=== PATIENT | female | born 1985 | race Hispanic/Latino ===

== ENCOUNTER 2017-12-05 07:34 | Day surgery (SDC) | payer BC ==
[2017-11-30 09:58] VITALS: BMI 24.9
[2017-12-05] MEDS ORDERED: Lidocaine 1% Inj (20ml) ONE (08:59)
[2017-12-05] MEDS ORDERED: ceFAZolin 1 gm in NS 1 GM/100 ML BAG IVPB ONE (08:59)
[2017-12-05] MEDS ORDERED: Bupivacaine HCl 0.5% PF (10 ml) Inj ONE (09:00)
[2017-12-05] MEDS ORDERED: Bacitracin Ointment 30 GM TUBE ONE (09:02)
[2017-12-05] MEDS ORDERED: Lactated Ringer's 1,000 ML IV ONE (09:15)
[2017-12-05] MEDS ORDERED: Lidocaine 1%/Epinephrine 1:100000 30 ml vial IJ ONE (09:33)
--- NOTE | 2017-12-05 10:24 | PCM.SURG1 ---
Surgeon's Initial Post Op Note - Surgeon's Notes Surgeon: Dr. Brown Education Professor: PGY1, Milo OMS3 Type of Anesthesia: Local Pre-Operative Diagnosis: Lipoma of left shoulder Operative Findings: see op note Post-Operative Diagnosis: as above Operation Performed: Excision of Left shoulder lipoma Specimen/Specimens Removed: L. Shoulder Lipoma Estimated Blood Loss: EBL {In ML}: 5 Blood Products Given: N/A Drains Used: No Drains Date of Surgery/Procedure: 12/05/17 Time of Surgery/Procedure: 10:24
[2017-12-05] MEDS ORDERED: Oxycodone/Acetaminophen 5/325 mg Tab PO ONE (10:25)
[2017-12-05] MEDS ORDERED: HYDROmorphone 0.5 mg/0.5 ml ISec IVP PRN (10:37)
[2017-12-05] MEDS ORDERED: Lactated Ringer's 1,000 ML IV SCH (10:45)
[2017-12-05 11:32] VITALS: BP 100/70; PULSE 70; RESP 18; TEMP 98; O2SAT 18
--- NOTE | 2017-12-05 21:31 | OP ---
PROCEDURE DATE: 12/05/2017 PREOPERATIVE DIAGNOSIS: Lipoma of left scapula shoulder. POSTOPERATIVE DIAGNOSIS: Lipoma of left scapula shoulder. SURGEON: Fer Brown Jr., MD BUGGY LADLE TENDER: Dr. Graves. ANESTHESIOLOGIST: Mr. Baets. ANESTHESIA: Local. INDICATIONS: The patient is a 32-year-old woman with a history of cardiomyopathy, valve replacement, who presents with an increasingly painful lipoma over the left shoulder. She has been seen previously, we deferred her because of her history of heart problems. Now, she says it has become bigger and more uncomfortable. OPERATIVE FINDINGS: This is consistent with a lipoma which is bilobed, which was removed completely and after this had been done, we then closed the wound with a layered closure after obtaining excellent hemostasis. Marcaine and lidocaine mixed with epinephrine was used as the anesthetic agent. DESCRIPTION OF PROCEDURE: The patient was given local anesthesia after prepping the skin, antibiotics were given separately. Incisions were made directly into the lipoma, we were able to remove it fairly cleanly. We then approximated the wounds with Monocryl and nylon sutures for the skin and subcuticular closure. Operation carried out was excision of lipoma, 5 cm. Fer Brown Jr., MD
== END 2017-12-05 11:45 | disposition home or self-care (01) ==
LOC: C.SDS 07:34
PROVIDERS: ATTEND Surgery Vascular Surgery
DX: D17.22 Benign lipomatous neoplasm of skin and subcutaneous tissue of left arm (principal); Z95.2 Presence of prosthetic heart valve; I42.9 Cardiomyopathy, unspecified
CPT/HCPCS: 11406; 88304; J0690; J7120